=== PATIENT | female | born 1990 | race American Indian/Alaskan Native ===

== ENCOUNTER 2021-08-11 17:25 | Outpatient (CLI) | payer BC, MEDICAID ==
[2021-08-11] MEDS ORDERED: LACTATED RINGERS 1,000 ML IV ONE (17:57)
[2021-08-11 18:06] VITALS: BP 120/62
[2021-08-11 18:18] LABS: Bilirubin,Urine NEG (Negative); Blood,Urine NEG (Negative); Color,Urine Yellow (Yellow); Mucus,Urine FEW /HPF; WBC,Urine < 1.0 /HPF (0.0-6.0)
== END 2021-08-11 18:50 | disposition home or self-care (01) ==
LOC: TRG 17:25 → APU 17:26 → TRG 18:50
PROVIDERS: ATTEND Obstetrics & Gynecology
DX: Z34.93 Encounter for supervision of normal pregnancy, unspecified, third trimester (principal); Z3A.33 33 weeks gestation of pregnancy
CPT/HCPCS: 59025; 81001; Q0177

== ENCOUNTER 2021-09-06 06:59 | Outpatient (CLI) | payer BC, MEDICAID ==
[2021-09-06 07:43] VITALS: BP 124/58
[2021-09-06] MEDS ORDERED: LACTATED RINGERS 500 ML IV ONE (07:47)
--- NOTE | 2021-09-06 07:53 | Event Note ---
Date: 09/06/21 (Contractions) Pt is a @ 36.3 wks who presented to triage with c/o contractions. States that the ctxs started around 0130 and have increased in intensity and frequency. Currently a category 1 monitor tracing with ctxs q 2-3 minutes. Cervical exam closed/thick/OOP. Plan of care for IV hydration discussed with pt. She agrees and verbalized understanding. Pt states that she has a baby shower on Sunday and the "baby is going to have to stay in there until after the baby shower." Will re-evaluate after IV hydration.
[2021-09-06] MEDS ORDERED: TERBUTALINE 1 MG/1 ML INJ SUB-Q ONE (08:20)
== END 2021-09-06 10:38 | disposition home or self-care (01) ==
LOC: TRG 06:59 → APU 07:00 → TRG 10:38
PROVIDERS: ATTEND Obstetrics & Gynecology
DX: O62.9 Abnormality of forces of labor, unspecified (principal); Z3A.36 36 weeks gestation of pregnancy
CPT/HCPCS: 59025; 96360; 96372; J3105; J7120; 96361

== ENCOUNTER 2021-09-19 13:02 | Inpatient (IN) | payer BC, MEDICAID ==
[2021-09-19] MEDS ORDERED: LIDOCAINE (2%) 20 MG/1 ML VIAL 20 ML MDV INFILTRATI NR (15:24)
[2021-09-19] MEDS ORDERED: miSOPROStol 200 MCG TAB PR PRN (15:24)
--- NOTE | 2021-09-19 15:37 | History and Physical Report ---
History of Present Illness Date of examination: 09/19/21 Date of admission: 09/19/2021 Chief complaint: sent from [facility] for induction History of present illness: EDC Confirmation: 10/01/2021 Past History : 4 Term Births: 2 Premature Births: 0 Living Children: 2 Para: 2 Mult. Births: 0 Prev : 0 Aborta: 0 Elect. Ab: 0 Spont. Ab: 1 Ectopics: 0 # 1 Delivery date: 2008 Weeks Gestation: 5 Delivery type: SAB Comments: No complications # 2 Delivery date: 2013 Weeks Gestation: 41 labor: no Delivery type: Hours of labor: ? Anesthesia type: none Delivery location: [facility] Infant Sex: Male weight: 7-9 # 3 Delivery date: 2016 Weeks Gestation: 41 labor: no Delivery type: Hours of labor: ? 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 % Sun Exposure: rarely Family History Risk Factors: Family History of VA in 1 Female Relative Age < 65: no Family History of VA in 1 Male Relative Age < 55: no No Dietary Counseling Reason: pn yes Past Medical History Anesthesia Complications: negative Anemia: negative Autoimmune Disorder: negative Bleeding Disorder: negative Blood Transfusions: negative Breast Disease: negative Diabetes: negative Heart Disease: negative Hypertension: negative Hepatitis/Liver Disease: negative Kidney Disease/UTI: negative Neurologic/Epilepsy/Migraines: negative Phlebitis/Varicosities: negative Psychiatric: negative Pulmonary Disease/Asthma: negative Thyroid Disease: negative Hospitalizations: negative Surgery (Non-automotive parts advisor): negative Abnormal PAP: negative PIETER Exposure: negative Infertility: negative Uterine Anomaly: negative Uterine Surgery (not C/S): negative Other Gynecologic Problems: negative Social Hx: Patient is Infection History Hx of STD: none HIV Risk Eval: no Hepatitis B Risk Eval: low risk Personal hx. of genital herpes: no Partner hx. of genital herpes: no Rash, Viral, or Febrile illness since last LMP? no Varicella/Chicken Pox Status: Previous Disease TB Risk: no Genetic History Congenital Heart Defect: Mom: no Dad: no Krzysztof Disease: Mom: no Dad: no Thalassemia Mom: no Dad: no Neural Tube Defect Mom: no Dad: no Down's Syndrome Mom: no Dad: no Matthew-Sachs Mom: no Dad: no Sickle Cell Disease/Trait Mom: no Dad: no Hemophilia Mom: no Dad: no Muscular Dystrophy Mom: no Dad: no Cystic Fibrosis Mom: no Dad: no [place] Chorea Mom: no Dad: no Mental Retardation Mom: no Dad: no Fragile X Mom: no Dad: no Other Genetic/Chromosomal Disorder Mom: no Dad: no Child w/other defect Mom: no Dad: no Enviromental Exposures Xray Exposure: no Medication, drug, or alcohol use since LMP: no Chemical/Other Exposure: no Exposure to Cat Liter: no Hx of Parvovirus (Fifth Disease): no Occupational Exposure to Children: none Active Medications (reviewed today): PRE-IVETTE TABS ( [id number]) T1 PO QD Current Allergies (reviewed today): No known allergies Past History Past Medical History: no pertinent history, other (see HPI) Past Surgical History: no surgical history, other (see HPI) 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 (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 , see HPI) Family/Genetic History: other (see HPI) Social history: , other (former smoker, see HPI) - Obstetrical History Expected Date of Delivery: 10/01/21 Actual Gestation: 38 Week(s) 2 Day(s) : 4 Para: 2 Hx # Term Pregnancies: 2 Number of Pregnancies: 0 Spontaneous Abortions: 1 Induced : 0 Number of Living Children: 2 Medications and Allergies Allergies Allergy/AdvReac Type Severity Reaction Status Date / Time No Known Allergies Allergy Verified 08/11/21 17:57 Active Meds: Active Medications Acetaminophen (Acetaminophen 325 Mg Tab) 650 mg PO Q4H PRN PRN Reason: Pain, Mild (1-3) Carboprost Tromethamine (Carboprost Tromethamine 250 Mcg/1 Ml Inj) 250 mcg IM ONCE PRN PRN Reason: Uterine Bleeding Ephedrine Sulfate (Ephedrine Sulfate 50 Mg/1 Ml Inj) 10 mg IV Q2M PRN PRN Reason: Hypotension Oxytocin/Sodium Chloride (Pitocin/Ns 30 Unit/500ml) 30 units in 500 mls @ 2 mls/hr IV TITR AMARILYS; Protocol Lactated Ringer's (Lactated Ringers) 1,000 mls @ 125 mls/hr IV DIRECT AMARILYS Oxytocin/Sodium Chloride (Pitocin/Ns 30 Unit/500ml) 30 units in 500 mls @ 40 mls/hr IV TITR AMARILYS; Protocol Lidocaine (Lidocaine (2%) 20 Mg/1 Ml Vial 20 Ml Mdv) 20 ml INFILTRATI ONCE ONE Stop: 09/19/21 15:25 Loperamide HCl (Loperamide 2 Mg Cap) 2 mg PO ONCE PRN PRN Reason: give with Hemabate Methylergonovine Maleate (Methylergonovine Maleate 0.2 Mg/Ml Vial) 0.2 mg IM ONCE PRN PRN Reason: Uterine Bleeding Mineral Oil (Mineral Oil 30 Ml Oral Liqd) 30 ml PO QHS PRN PRN Reason: Constipation Nalbuphine HCl (Nalbuphine 10 Mg/1 Ml Inj) 10 mg IV Q2H PRN PRN Reason: Pain, Moderate (4-6) Ondansetron HCl (Ondansetron 4 Mg/2 Ml Inj) 4 mg IV Q8H PRN PRN Reason: Nausea And Vomiting Oxytocin (Oxytocin 10 Unit/1 Ml Inj) 10 unit IM ONCE PRN PRN Reason: Uterine Bleeding Terbutaline Sulfate (Terbutaline 1 Mg/1 Ml Inj) 0.25 mg SUB-Q ONCE PRN PRN Reason: Hyperstimulation/Hypertonicity Review of Systems All systems: negative Genitourinary: contractions, no vaginal bleeding, no leakage of fluid, no genital sores - Vital Signs Vital signs: Vital Signs Pulse BP 78 112/70 09/19/21 13:41 09/19/21 13:41 Temp Pulse Resp BP Pulse Ox 81 112/70 100 09/19/21 15:29 09/19/21 13:41 09/19/21 15:29 - Physical Exam Breasts: Positive: deferred Cardiovascular: Regular rate Lungs: Positive: Normal air movement Abdomen: Positive: normal appearance, soft. Negative: distention, tenderness, guarding Genitourinary (Female): Positive: normal external genitalia, normal perenium Vulva: both: normal Vagina: Positive: normal moisture Uterus: Positive: normal size, normal contour, other (gravid at term) Anus/Rectum: Positive: normal perianal skin, heme negative Extremities: Positive: normal - Obstetrical FHR: auscultation normal, category 1 Uterine Contraction Monitor Mode: External Cervical Dilatation: 2 Cervical Effacement Percentage: 30 station: -3 Uterine Contraction Pattern: Irregular Uterine Tone Measurement Phase: Resting Results All other labs normal. Tests: (1) ABO Grouping and Rho(D) Typing (621101) ABO Grouping O *1 Rh Factor Positive *2 Please note: Prior records for this patient's ABO / Rh type are not available for additional verification. Tests: (2) Rubella Antibodies, IgG ([id number]) Rubella Antibodies, IgG 4.11 index Immune >0.99 *3 Non-immune <0.90 Equivocal 0.90 - 0.99 Immune >0.99 Tests: (1) Ct, Ng, Trich vag by MAAME ([id number]) Order Note: Clinical Information: SRC:VR SRC:UR Chlamydia by MAAME Negative Negative *1 Gonococcus by MAAME Negative Negative *2 Trich vag by MAAME Negative Negative *3 Tests: (2) Strep Gp B MAAME ([id number]) ! Strep Gp B MAAME Negative Negative *4 Tests: (1) RPR, Rfx Qn RPR/Confirm TP ([id number]) RPR Non Reactive Non Reactive *1 Tests: (2) HIV Ab/p24 Ag with Reflex ([id number]) HIV Ab/p24 Ag Screen Non Reactive Non Reactive *2 Assessment and Plan Pt presents for induction of labor from [facility] office. Per Dr. Bates, MIRACLE 2.9cm EFW [id number] and BPP 6/8 today. SVE performed and pt tolerated well. POC d/w pt. Questions encouraged. No questions verbalized. Pt verbalizes understanding and agrees to POC. Dr. Castellon aware. Anticipate . - Patient Problems (1) Oligohydramnios in henao in third trimester Current Visit: Yes Status: Acute (2) 38 weeks gestation of Current Visit: Yes Status: Acute
[2021-09-19] MEDS ORDERED: ONDANSETRON 4 MG/2 ML INJ IV PRN (16:00)
[2021-09-19] MEDS ORDERED: TERBUTALINE 1 MG/1 ML INJ SUB-Q PRN (16:00)
[2021-09-19] MEDS ORDERED: LOPERAMIDE 2 MG CAP PO PRN (16:00)
[2021-09-19] MEDS ORDERED: OXYTOCIN 10 UNIT/1 ML INJ IM PRN (16:00)
[2021-09-19] MEDS ORDERED: ePHEDrine SULFATE 50 MG/1 ML INJ IV PRN (16:00)
[2021-09-19] MEDS ORDERED: ACETAMINOPHEN 325 MG TAB PO PRN (16:00)
[2021-09-19] MEDS ORDERED: OXYTOCIN DRIP 30 UNITS/500 ML BAG IV SCH ×2 (16:00)
[2021-09-19] MEDS ORDERED: METHYLERGONOVINE MALEATE 0.2 MG/ML VIAL IM PRN (16:00)
[2021-09-19] MEDS ORDERED: CARBOPROST TROMETHAMINE 250 MCG/1 ML INJ IM PRN (16:00)
[2021-09-19 17:41] LABS: Hematocrit 35.1 % (30.3-42.9); Hemoglobin 12.4 gm/dl (10.1-14.3); Mean Corpuscular HGB Conc 35 % (30-34); Mean Corpuscular Volume 96 fl (79-97); Platelet Count 245 K/mm3 (140-440); Red Blood Count 3.67 M/mm3 (3.65-5.03); Red Cell Distribution Width 13.4 % (13.2-15.2)
[2021-09-19] MEDS ORDERED: MINERAL OIL 30 ML ORAL LIQD PO PRN (22:00)
[2021-09-20] MEDS: NalbUPHINE 10 MG/1 ML INJ IV PRN ×2 (03:02→10:34)
[2021-09-20] MEDS: LACTATED RINGERS 1,000 ML IV SCH ×2 (07:30→08:32)
[2021-09-20] MEDS ORDERED: OXYTOCIN DRIP 30 UNITS/500 ML BAG IV SCH ×2 (08:00→14:00)
[2021-09-20] MEDS ORDERED: miSOPROStol 200 MCG TAB PR PRN (08:05)
--- NOTE | 2021-09-20 08:13 | Progress Note ---
Assessment and Plan A: @ 38.3 admitted for IOL r/t oligohydramnios. Endorses gush of fluid upon waking to the use the restroom around 0200 on 09/19/21. Upon entering room, pt resting in bed, lights off. cEFM in place, Cat 1 tracing. Supportive partner at bedside. Affirms movement and denies LOF, vaginal bleeding, chest pain, headaches, SOB, NVD and RUQ. Breathing well through contractions, occurring q5-8 minutes. Recently received IV analgesic for pain, reports adequate pain relief; does not desire epidural. SVE: /-3 at this time. P: Continue titration of pitocin. Order modified from LDP to SDP 4x4. Clear liquid diet Continue IV analgesic PRN for pain management. Anticipate . - Patient Problems (1) 38 weeks gestation of Current Visit: Yes Status: Acute Plan to address problem: Continue to monitor wellbeing via cEFM (2) Oligohydramnios in henao in third trimester Current Visit: Yes Status: Acute Plan to address problem: Continue IOL Monitor for signs and symptoms of infection Subjective - Subjective Date of service: 09/20/21 Principal diagnosis: IUP @ 38.3 wks, IOL d/t Oligo Patient reports: movement normal Objective - Vital Signs Vital Signs: Vital Signs - 12hr 09/19/21 09/19/21 09/19/21 20:09 20:14 20:19 Pulse Rate 89 78 78 Blood Pressure O2 Sat by Pulse 100 100 100 Oximetry 09/19/21 09/19/21 09/19/21 20:24 20:29 20:34 Pulse Rate 80 78 79 Blood Pressure O2 Sat by Pulse 100 100 99 Oximetry 09/19/21 09/19/21 09/19/21 20:39 20:44 20:49 Pulse Rate 70 85 81 Blood Pressure O2 Sat by Pulse 100 99 100 Oximetry 09/19/21 09/19/21 09/19/21 20:54 20:59 21:04 Pulse Rate 68 68 73 Blood Pressure O2 Sat by Pulse 99 99 98 Oximetry 09/19/21 09/19/21 09/19/21 21:09 21:14 21:19 Pulse Rate 78 80 73 Blood Pressure O2 Sat by Pulse 99 100 100 Oximetry 09/19/21 09/19/21 09/19/21 21:24 21:29 21:34 Pulse Rate 68 71 69 Blood Pressure O2 Sat by Pulse 99 100 100 Oximetry 09/19/21 09/19/21 09/19/21 21:39 21:44 21:49 Pulse Rate 72 82 80 Blood Pressure O2 Sat by Pulse 99 99 99 Oximetry 09/19/21 09/19/21 09/19/21 21:54 21:59 22:04 Pulse Rate 75 91 H 78 Blood Pressure O2 Sat by Pulse 100 100 98 Oximetry 09/19/21 09/19/21 09/19/21 22:09 22:14 22:19 Pulse Rate 79 76 75 Blood Pressure O2 Sat by Pulse 98 98 97 Oximetry 09/19/21 09/19/21 09/19/21 22:26 22:31 22:36 Pulse Rate 75 83 84 Blood Pressure O2 Sat by Pulse 100 98 98 Oximetry 09/19/21 09/19/21 09/19/21 22:41 22:46 22:51 Pulse Rate 74 66 76 Blood Pressure O2 Sat by Pulse 98 99 98 Oximetry 09/19/21 09/19/21 09/19/21 22:56 23:01 23:06 Pulse Rate 74 77 80 Blood Pressure O2 Sat by Pulse 98 99 98 Oximetry 09/19/21 09/19/21 09/19/21 23:11 23:16 23:21 Pulse Rate 77 67 81 Blood Pressure O2 Sat by Pulse 99 100 98 Oximetry 09/19/21 09/19/21 09/19/21 23:26 23:31 23:36 Pulse Rate 65 65 73 Blood Pressure O2 Sat by Pulse 98 99 99 Oximetry 09/19/21 09/19/21 09/19/21 23:41 23:46 23:51 Pulse Rate 67 68 74 Blood Pressure O2 Sat by Pulse 100 100 100 Oximetry 09/19/21 09/20/21 09/20/21 23:56 00:01 00:06 Pulse Rate 66 66 64 Blood Pressure O2 Sat by Pulse 99 99 98 Oximetry 09/20/21 09/20/21 09/20/21 00:11 00:16 00:21 Pulse Rate 74 65 65 Blood Pressure O2 Sat by Pulse 99 98 98 Oximetry 09/20/21 09/20/21 09/20/21 00:26 00:31 00:36 Pulse Rate 65 65 64 Blood Pressure O2 Sat by Pulse 97 97 97 Oximetry 09/20/21 09/20/21 09/20/21 00:41 00:46 00:51 Pulse Rate 65 62 62 Blood Pressure O2 Sat by Pulse 97 99 100 Oximetry 09/20/21 09/20/21 09/20/21 00:56 01:01 01:06 Pulse Rate 69 66 63 Blood Pressure O2 Sat by Pulse 99 100 99 Oximetry 09/20/21 09/20/21 09/20/21 01:11 01:16 01:25 Pulse Rate 64 85 80 Blood Pressure O2 Sat by Pulse 100 100 99 Oximetry 09/20/21 09/20/21 09/20/21 01:30 01:35 01:40 Pulse Rate 73 69 73 Blood Pressure O2 Sat by Pulse 99 99 100 Oximetry 09/20/21 09/20/21 09/20/21 01:45 01:50 01:55 Pulse Rate 67 69 60 Blood Pressure O2 Sat by Pulse 100 99 99 Oximetry 09/20/21 09/20/21 09/20/21 02:00 02:05 02:10 Pulse Rate 69 60 65 Blood Pressure O2 Sat by Pulse 99 99 99 Oximetry 09/20/21 09/20/21 09/20/21 02:15 02:20 02:25 Pulse Rate 61 61 68 Blood Pressure O2 Sat by Pulse 100 100 99 Oximetry 09/20/21 09/20/21 09/20/21 02:30 02:35 02:40 Pulse Rate 60 64 65 Blood Pressure O2 Sat by Pulse 99 98 99 Oximetry 09/20/21 09/20/21 09/20/21 02:45 02:50 02:55 Pulse Rate 64 64 62 Blood Pressure O2 Sat by Pulse 99 99 100 Oximetry 09/20/21 09/20/21 09/20/21 03:00 03:05 03:10 Pulse Rate 73 63 59 L Blood Pressure O2 Sat by Pulse 100 98 98 Oximetry 09/20/21 09/20/21 09/20/21 03:15 03:20 03:25 Pulse Rate 65 89 61 Blood Pressure O2 Sat by Pulse 98 99 97 Oximetry 09/20/21 09/20/21 09/20/21 03:30 03:35 03:40 Pulse Rate 66 64 62 Blood Pressure O2 Sat by Pulse 98 98 98 Oximetry 09/20/21 09/20/21 09/20/21 03:45 03:50 03:55 Pulse Rate 74 63 63 Blood Pressure O2 Sat by Pulse 98 98 99 Oximetry 09/20/21 09/20/21 09/20/21 04:00 04:05 04:10 Pulse Rate 66 67 61 Blood Pressure O2 Sat by Pulse 98 98 98 Oximetry 09/20/21 09/20/21 09/20/21 04:15 04:20 04:30 Pulse Rate 63 67 91 H Blood Pressure O2 Sat by Pulse 98 99 99 Oximetry 09/20/21 09/20/21 09/20/21 04:34 04:35 04:40 Pulse Rate 77 77 60 Blood Pressure 104/61 O2 Sat by Pulse 98 98 Oximetry 09/20/21 09/20/21 09/20/21 04:41 04:45 04:50 Pulse Rate 62 62 65 Blood Pressure 100/60 O2 Sat by Pulse 98 98 Oximetry 09/20/21 09/20/21 09/20/21 04:55 05:00 05:05 Pulse Rate 62 64 67 Blood Pressure O2 Sat by Pulse 98 98 97 Oximetry 09/20/21 09/20/21 09/20/21 05:10 05:13 05:15 Pulse Rate 68 60 73 Blood Pressure 105/55 O2 Sat by Pulse 98 98 Oximetry 09/20/21 09/20/21 09/20/21 05:20 05:25 05:30 Pulse Rate 74 68 60 Blood Pressure O2 Sat by Pulse 98 98 99 Oximetry 09/20/21 09/20/21 09/20/21 05:35 05:40 05:41 Pulse Rate 65 69 67 Blood Pressure 100/59 O2 Sat by Pulse 99 99 Oximetry 09/20/21 09/20/21 09/20/21 05:45 05:50 05:55 Pulse Rate 66 67 74 Blood Pressure O2 Sat by Pulse 99 99 99 Oximetry 09/20/21 09/20/21 09/20/21 06:00 06:05 06:10 Pulse Rate 63 64 59 L Blood Pressure O2 Sat by Pulse 99 100 98 Oximetry 09/20/21 09/20/21 09/20/21 06:11 06:15 06:20 Pulse Rate 64 64 69 Blood Pressure 106/58 O2 Sat by Pulse 98 99 Oximetry 09/20/21 09/20/21 09/20/21 06:25 06:30 06:35 Pulse Rate 60 63 79 Blood Pressure O2 Sat by Pulse 98 98 97 Oximetry 09/20/21 09/20/21 09/20/21 06:40 06:43 06:45 Pulse Rate 85 66 69 Blood Pressure 105/58 O2 Sat by Pulse 99 99 Oximetry 09/20/21 09/20/21 09/20/21 06:50 06:55 07:00 Pulse Rate 71 77 89 Blood Pressure O2 Sat by Pulse 99 98 99 Oximetry 09/20/21 09/20/21 09/20/21 07:05 07:10 07:11 Pulse Rate 64 65 75 Blood Pressure 106/65 O2 Sat by Pulse 100 98 Oximetry 09/20/21 09/20/21 09/20/21 07:15 07:20 07:25 Pulse Rate 62 77 79 Blood Pressure O2 Sat by Pulse 98 98 98 Oximetry 09/20/21 09/20/21 09/20/21 07:30 07:35 07:40 Pulse Rate 69 62 82 Blood Pressure O2 Sat by Pulse 98 98 98 Oximetry 09/20/21 09/20/21 09/20/21 07:43 07:45 07:50 Pulse Rate 59 L 69 75 Blood Pressure 118/63 O2 Sat by Pulse 99 99 Oximetry 09/20/21 09/20/21 09/20/21 07:55 07:59 08:00 Pulse Rate 80 87 72 Blood Pressure O2 Sat by Pulse 99 94 99 Oximetry 09/20/21 08:05 Pulse Rate 85 Blood Pressure O2 Sat by Pulse 98 Oximetry - Exam Cardiovascular: Regular rate Lungs: Clear to auscultation, Normal air movement Abdomen: Present: normal appearance, soft Vulva: both: normal FHR: category 1 Uterine Contraction Monitor Mode: External Cervical Dilatation: 2 (no bag felt) Cervical Effacement Percentage: 50 station: -3 Uterine Contraction Frequency (min): q5-8 min Uterine Contraction Duration: 30-50 seconds Uterine Contraction Pattern: Irregular - Labs Labs: Abnormal Labs 09/19/21 14:00 MCH 34 H MCHC 35 H Laboratory Results - last 24 hr 09/19/21 09/19/21 09/19/21 14:00 14:00 14:00 WBC 9.6 RBC 3.67 Hgb 12.4 Hct 35.1 MCV 96 MCH 34 H MCHC 35 H RDW 13.4 Plt Count 245 Syphilis IgG/IgM Ab Nonreactive Blood Type O POSITIVE Antibody Screen Negative
[2021-09-20] MEDS ORDERED: fentaNYL 100 MCG/2 ML INJ IV PRN (08:30)
[2021-09-20] MEDS ORDERED: LIDOCAINE (2%) 20 MG/1 ML VIAL 20 ML MDV INFILTRATI ONE (12:08)
--- NOTE | 2021-09-20 12:57 | Procedure Note ---
OB Delivery Note - Delivery Date of Delivery: 09/20/21 Hide Dropper: MIRIAM HARRIS (Claudia Mckay) Estimated blood loss: 200cc - Vaginal Delivery position: OA Intrapartum events: PROM->1hr before delivery, hydramnios (oligohydramnios) Delivery induction: oxytocin Delivery monitor: external FHT, external uterine Route of delivery: Delivery placenta: spontaneous Episiotomy: none Delivery laceration: other (bilateral labial lacerations, hemostatic, not repaired) Delivery repair: other Anesthesia: intravenous Delivery comments: Called by RN, pt c/c/+1 endorsing pressure and urge to push with contractions. Provider at bedside @1205, pushing initiated with contractions with excellent maternal effort. SVB of vigorous female @1215, immediately placed to maternal abdomen. IV pitocin initiated. Delayed cord clamping ~90 seconds, 3vc clamped and cut by supportive partner. Brisk bright red vaginal bleeding noted at perineum, Sanchez placenta delivered @1220. Bilateral labial lacerations noted, hemostatic not repaired. 2nd episode of brisk red bleeding noted at perineum. Fundus firm @ U. EBL 200mL. 800mcg cytotec placed per rectum. Mother and infant left in recovery of RN at 1230. -Fernando Harris CNM and Claudia Mckay - A at 1 minute: 8 at 5 minutes: 9 Infant Gender: Female (Dinah)
[2021-09-20] MEDS ORDERED: LANOLIN/ZINC/DIMETHICONE (LANSINOH) 7 GM TP PRN ×2 (13:53→15:00)
[2021-09-20] MEDS ORDERED: ACETAMINOPHEN 325 MG TAB PO PRN (13:53)
[2021-09-20] MEDS ORDERED: METHYLERGONOVINE MALEATE 0.2 MG/ML VIAL IM ONE (14:06)
[2021-09-20] MEDS: IBUPROFEN 800 MG TAB PO SCH ×2 (14:30→21:57)
[2021-09-20] MEDS ORDERED: ACETAMINOPHEN 500 MG TAB PO PRN (15:00)
[2021-09-20] MEDS ORDERED: oxyCODONE /ACETAMINOPHEN 5-325MG TAB PO PRN (15:00)
[2021-09-20] MEDS ORDERED: PROMETHAZINE 25 MG RECT SUPP PR PRN (15:00)
[2021-09-20] MEDS ORDERED: WITCH HAZEL/ GLYCERIN PAD TP PRN (15:00)
[2021-09-20] MEDS ORDERED: miSOPROStol 100 MCG TAB PR PRN (15:00)
[2021-09-20] MEDS ORDERED: PROMETHAZINE 25 MG TAB PO PRN (15:00)
[2021-09-20] MEDS ORDERED: diphenhydrAMINE 25 MG CAP PO PRN (15:00)
[2021-09-20] MEDS ORDERED: ONDANSETRON 4 MG/2 ML INJ IV PRN (15:00)
[2021-09-20] MEDS ORDERED: BENZOCAINE/MENTHOL 20/0.5% TOP SPRAY 56 GM TP PRN (15:00)
[2021-09-20] MEDS: DOCUSATE SODIUM 100 MG CAP PO SCH (21:57)
[2021-09-20] MEDS ORDERED: MAGNESIUM HYDROXIDE (MOM) ORAL LIQD UDC PO PRN (22:00)
[2021-09-21 02:36] LABS: Hematocrit 33.1 % (30.3-42.9); Hemoglobin 11.4 gm/dl (10.1-14.3)
[2021-09-21] MEDS: IBUPROFEN 800 MG TAB PO SCH ×3 (04:38→16:40)
--- NOTE | 2021-09-21 08:36 | Discharge Summary ---
Providers - Providers Date of Admission: 09/19/21 15:24 Date of discharge: 09/21/21 Attending physician: JUAREZ RAMIREZ MD Primary care physician: JUAREZ RAMIREZ MD Hospitalization Reason for admission: induction of labor, IUP at term Delivery: Episiotomy: none Laceration: other (bilateral labial) Other procedures: none complications: none Discharge diagnosis: IUP at term delivered [place] baby: female Condition at discharge: Good Disposition: 01 HOME / SELF CARE / HOMELESS - Discharge Diagnoses (1) Oligohydramnios in henao in third trimester Status: Acute (2) 38 weeks gestation of Status: Acute (3) (normal spontaneous vaginal delivery) Status: Acute Comment: Exam unremarkeable. Discharge precautions reviewed. Pt denies desires for control. Follow up for visit in 4 wks discussed. Plan - Provider Discharge Summary Activity: routine, no sex for 6 weeks, no heavy lifting 4 weeks, no strenuous exercise Diet: routine Instructions: routine Additional instructions: [] Smoking cessation referral if applicable(refer to patient education folder for contact #) [] Refer to [facility] Center Booklet Call your doctor immediately for: * Fever > 100.5 * Heavy vaginal bleeding ( >1 pad per hour) * Severe persistent headache * Shortness of breath * Reddened, hot, painful area to leg or breast Congratulations! Please call [phone] and schedule your visit in 4 weeks. Thank you! - Follow up plan Follow up: JUAREZ RAMIREZ MD [Primary Care Provider] - 7 Days
[2021-09-21] MEDS: DOCUSATE SODIUM 100 MG CAP PO SCH (09:41)
[2021-09-21] MEDS ORDERED: PRENATAL VIT27-FE FUMARATE-FOLIC ACID VIT TAB PO SCH (10:00)
[2021-09-21] MEDS ORDERED: TETANUS,DIPH,PERTUSS(ACELL) VACCINE 0.5 ML SYRINGE IM ONE (13:02)
[2021-09-21 16:25] VITALS: BP 114/63
== END 2021-09-21 19:15 | disposition home or self-care (01) | DRG 807 ==
LOC: TRG 13:02 → APU 13:04 → LD 13:40 → TRG 15:24 → LD 15:24 → OB 09-20 14:57
PROVIDERS: ADMIT Student in an Organized Health Care Education/Training Program; ATTEND Student in an Organized Health Care Education/Training Program
PROC: 10E0XZZ Delivery of Products of Conception, External Approach (ICD-10-PCS; principal; 2021-09-20)
PROC: 3E033VJ Introduction of Other Hormone into Peripheral Vein, Percutaneous Approach (ICD-10-PCS; 2021-09-20)
PROC: 3E0234Z Introduction of Serum, Toxoid and Vaccine into Muscle, Percutaneous Approach (ICD-10-PCS; 2021-09-21)
DX: O41.03X0 Oligohydramnios, third trimester, not applicable or unspecified (principal); Z37.0 Single live birth; Z3A.38 38 weeks gestation of pregnancy; Z23 Encounter for immunization; Z20.822 Contact with and (suspected) exposure to COVID-19; O42.02 Full-term premature rupture of membranes, onset of labor within 24 hours of rupture; O70.0 First degree perineal laceration during delivery
CPT/HCPCS: 36415; 59025; 85014; 85018; 85027; 86592; 86762; 86850; 86900; 86901; 96360; G0378; J2210; J2300; J2590; J7120; U0003